=== PATIENT | female | born 1985 | race Caucasian/White ===

== ENCOUNTER 2022-01-07 15:08 | Emergency (ER) | payer OTHER, SELFPAY ==
[2022-01-07 15:20] VITALS: BP 136/97; PULSE 81; RESP 12; TEMP 36.2; O2SAT 99; BMI 26.6
--- NOTE | 2022-01-07 15:20 | CRLHL7_ITS ---
For Patients: As a result of the Cures Act, medical imaging exams and procedure reports are released immediately into your electronic medical record. You may view this report before your referring provider. If you have questions, please contact your health care provider. Indication: Injury Technique: Three views right hand Comparison: No comparison Findings: Normal alignment. No acute fractures are seen. No acute abnormalities. Dictated by Yessenia Jorgensen MD @ 01/07/2022 4:07:40 PM (Electronically Signed)
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
[2022-01-07 16:00] VITALS: BP 131/97; PULSE 85; RESP 14; O2SAT 97
[2022-01-07 16:56] VITALS: BP 124/94; PULSE 82; RESP 17; TEMP 36.8
== END 2022-01-07 16:59 | disposition home or self-care (01) ==
PROVIDERS: Emergency Provider Emergency Medicine Emergency Medical Services; PCP Family Medicine
DX: S20.213A Contusion of bilateral front wall of thorax, initial encounter (principal); S60.221A Contusion of right hand, initial encounter; V43.52XA Car driver injured in collision with other type car in traffic accident, initial encounter; W22.19XA Striking against or struck by other automobile airbag, initial encounter; Y92.410 Unspecified street and highway as the place of occurrence of the external cause; Y99.9 Unspecified external cause status
CPT/HCPCS: 29130; 71046; 73130; 99285; 99291; G0390

== ENCOUNTER 2024-08-21 08:29 | Outpatient (CLI) | payer OTHER, SELFPAY | END 2024-08-21 08:30 | disposition home or self-care (01) | PROVIDERS: PCP Registered Nurse; Visit Provider Registered Nurse | DX: Z00.01 Encounter for general adult medical examination with abnormal findings (principal); E04.0 Nontoxic diffuse goiter; Z13.228 Encounter for screening for other metabolic disorders; Z13.6 Encounter for screening for cardiovascular disorders | CPT/HCPCS: 80048; 80061; 84439; 84443 ==

== ENCOUNTER 2024-11-18 13:45 | Outpatient (CLI) | payer OTHER, SELFPAY ==
--- NOTE | 2024-11-18 14:00 | CRLHL7_ITS ---
For Patients: As a result of the Century Cures Act, medical imaging exams and procedure reports are released immediately into your electronic medical record. You may view this report before your referring provider. If you have questions, please contact your health care provider. INDICATION: BILATERAL SCREENING MAMMOGRAM, ASYMPTOMATIC 39 Y/O FEMALE COMPARISON: NONE TECHNIQUE: Digital mammogram in CC and MLO projections including computer-aided detection (CAD) and tomosynthesis. BREAST COMPOSITION: There are scattered areas of fibroglandular density. FINDINGS: No suspicious findings. ASSESSMENT: BI-RADS 1 Negative RECOMMENDATION: Annual screening mammogram. A lay language report of this examination will be provided to the patient. Dictated by: Dejon Haile MD @ 11/19/2024 09:57:01 (Electronically Signed)
== END 2024-11-18 13:46 | disposition home or self-care (01) ==
LOC: MAMMO 13:46
PROVIDERS: PCP Registered Nurse; Visit Provider Registered Nurse
DX: Z12.31 Encounter for screening mammogram for malignant neoplasm of breast (principal)
CPT/HCPCS: 77063; 77067